=== PATIENT | male | born 1990 | race Caucasian/White ===

== ENCOUNTER 2022-01-23 20:30 | Emergency (ER) | payer OTHER ==
[~2022-01-23] VITALS: Ht 167.6 cm; Wt 109.8 kg
[2022-01-23 20:50] VITALS: BP 110/75
--- NOTE | 2022-01-23 20:50 | NUR ---
to bed ambulatory
[2022-01-23] MEDS ORDERED: ALUMINUM HYD/MAG/SIMETHICONE 30 ML UDC PO ONE (21:15)
[2022-01-23] MEDS ORDERED: ONDANSETRON 4 MG ODT PO ONE (21:15)
[2022-01-23] MEDS ORDERED: FAMOTIDINE 20 MG TAB PO ONE (21:15)
[2022-01-23 21:25] LABS: BASOPHILS # (AUTO) 0.1 K/uL (0.00-0.22); BASOPHILS % (AUTO) 0.6 % (0.0-2.0); EOSINOPHILS # (AUTO) 0.2 K/uL (0-0.4); EOSINOPHILS % (AUTO) 1.6 % (0.0-4.0); HEMATOCRIT 48.8 % (36-52); HEMOGLOBIN 17.1 g/dL (12.0-18.0); LYMPHOCYTES # (AUTO) 2.5 K/uL (2.0-11.5); MEAN CORPUSCULAR HEMOGLOBIN 30 pg (27-31); MEAN CORPUSCULAR HGB CONC 35 g/dL (33-37); MONOCYTES # (AUTO) 0.7 K/uL (0.8-1.0); MONOCYTES % (AUTO) 7.2 % (1.7-9.3); NEUTROPHILS # (AUTO) 6.8 K/uL (1.8-7.7); NEUTROPHILS % (AUTO) 66.6 % (42.2-75.2); PLATELET COUNT (AUTO) 246 K/uL (140-450); RED BLOOD CELL COUNT(AUTO) 5.68 MIL/uL (4.20-6.10); WHITE BLOOD COUNT (AUTO) 10.3 K/uL (4.8-10.8)
--- NOTE | 2022-01-23 21:34 | NUR ---
Xray at bedside
--- NOTE | 2022-01-23 21:34 | NUR ---
Patient lying in bed, A/Ox4, chest rise and fall symmetrical, no c/o pain or s/s of discomfort. Addendum: 01/23/22 at 2134 by [email or web address] Patient lying in bed, A/Ox4, chest rise and fall symmetrical, no s/s of distress.
[2022-01-23 22:04] LABS: ALBUMIN 3.8 g/dL (3.4-5.0); CARBON DIOXIDE 23.9 mmol/L (21-32); TOTAL BILIRUBIN 0.3 mg/dL (0.0-1.0)
[2022-01-23 22:05] LABS: ANION GAP 15.1 (8-16)
[2022-01-23] MEDS ORDERED: FAMO-90 PO (22:18)
[2022-01-23] MEDS ORDERED: ONDA-188 SL (22:18)
[2022-01-23 22:24] VITALS: BP 117/85
== END 2022-01-23 22:30 | disposition home or self-care (01) ==
LOC: MED 20:30
DX: R07.89 Other chest pain (principal); R14.0 Abdominal distension (gaseous); F17.200 Nicotine dependence, unspecified, uncomplicated
CPT/HCPCS: 36415; 71045; 76705; 80053; 81002; 83690; 84484; 85025; 93005; 99285; Q0092; Q0162